=== PATIENT | male | born 1985 | race Caucasian/White ===

== ENCOUNTER 2025-04-09 13:10 | Emergency (ER) | payer OTHER, SELFPAY ==
[2025-04-09 13:26] VITALS: BP 140/68
--- NOTE | 2025-04-09 16:13 | ED.GENMED ---
History of Present Illness
General
Chief Complaint: Extremity Pain (non-traumatic)
Source: patient
Exam Limitations: none
Time Seen by Provider: 04/09/25 15:32
Nursing documentation reviewed up to this point in time: agreed with
History of Present Illness
History of Present Illness:
Patient with history of previous DVT x 3, currently on aspirin 81 mg daily, presents to ED secondary to persistent right foot and ankle pain over the past 6 days. Patient was evaluated by his primary care physician who ordered D-dimer as an
outpatient, which was elevated. Patient was subsequently referred to ED for further evaluation and treatment, including potential ultrasound of the affected leg. Denies loss of sensation/weakness. Denies cp/sob.
Past History
Past History
ED Past Medical History: Other (dvt, thoracic outlet syndrome)
ED Past Surgical History: None
Social History
Tobacco: Non-smoker
Review of Systems
Review of Systems
Allergies reviewed?: Yes
All Other Systems: ROS reviewed and negative except as documented in HPI and ROS
Constitutional: Reports no symptoms
Respiratory: Reports no symptoms; Denies trouble breathing
Cardiac: Reports no symptoms; Denies chest pain
Musculoskeletal: Reports other (Foot and ankle pain with swelling)
Skin: Reports no symptoms
Neurological: Reports no symptoms; Denies weakness or numbness
Phy Exam
Physical Exam
Physical Exam:
Physical Exam
General: no apparent distress, not acutely ill. afebrile
Head: nc/at. eomi
Neck: supple. normal range of motion
Neuro: alert and oriented x 3. no focal neurological deficits
Skin: no rash
Psychiatric: well kept. interactive and cooperative
Extremities: no calf tenderness. minimal erythema noted over top of right foot along with medial malleoli are tenderness with minimal swelling
Course
Orders/Labs/Results
Orders:
Orders
04/09/25 13:12
US Periph Venous LOWER Ext RT Urgent
Comment: hx of rue dvt from thoracic outlet syndrome
Reason For Exam: rle pain; elevated d dimer
Vital Signs
Initial and Last Documented VS:
Initial Vital Signs
Temp Pulse Resp BP Pulse Ox
98.4 F 87 18 140/68 99
04/09/25 13:26 04/09/25 13:26 04/09/25 13:26 04/09/25 13:04/09/25 13:26
Last Documented Vital Signs
Temp Pulse Resp BP Pulse Ox
98.4 F 87 18 140/68 99
04/09/25 13:26 04/09/25 13:26 04/09/25 13:26 04/09/25 13:04/09/25 16:14
MDM/Problems Addressed
MDM/Problems Addressed:
Ultrasound report reviewed and discussed with patient and family. Patient given copy of ultrasound report at discharge, to be discussed with his primary care physician and/or referred mortgage underwriter. Patient already has Eliquis from his previous
incident, which he will start to take today.
*Pulse Oximetry
SaO2: 99
Oxygen Mode of Delivery: Room air
Patient hypoxic: no
*Critical Care Note
Total Time (30-74mins, 75-104mins- exclusive of procedures): Not Applicable
ED Attending Note
-
Portions of this chart may have been created with voice recognition software.� Occasional wrong word or��sound alike� substitutions may have occurred due to the inherent limitations of voice recognition software.
Discharge Plan
Departure
Patient Disposition: Home (Routine Discharge)
Date of Disposition: 04/09/25
Time of Disposition: 16:18
Patient with high blood pressure during this ER visit?: Yes
Discharge Problem:
DVT (deep venous thrombosis)
Instructions: Deep vein thrombosis (DVT) - ED (DC)
Referrals:
Reno Pickard, DO [Active, Hematology / Oncology]
Activity Restrictions/Additional Instructions:
As discussed, please follow-up with your primary care physician and/or referred mortgage underwriter for further evaluation and treatment. In ED, ultrasound revealed an acute DVT. Please start to take Eliquis this evening -10 mg twice daily x 7 days,
followed by 5 mg twice daily.
Interventions
Interventions:
*Risk Screen - Suicide Last Done: 04/09/25 13:26
*General Assessment Last Done: 04/09/25 16:30
*Neglect/Abuse Screening Last Done: 04/09/25 16:30
*Nursing Disposition Last Done: 04/09/25 16:47
ED-Skin Assessment Last Done: 04/09/25 16:30
ED-Peripheral Vascular Assessment Last Done: 04/09/25 16:30
ED-Musculoskeletal Assessment Last Done: 04/09/25 16:30
Discharge Date and Time
Discharge Date/Time: 04/09/25 16:48
Print Language: INDONESIAN
== END 2025-04-09 16:48 | disposition home or self-care (01) ==
LOC: EMR 13:10
PROVIDERS: EMERGENCY PHYSICIAN Emergency Medicine; FAMILY PHYSICIAN Internal Medicine
DX: I82.451 Acute embolism and thrombosis of right peroneal vein (principal); Z86.718 Personal history of other venous thrombosis and embolism; Z79.82 Long term (current) use of aspirin
CPT/HCPCS: 99284; 93971

== ENCOUNTER 2025-06-20 19:43 | Emergency (ER) | payer OTHER, SELFPAY ==
[2025-06-20 20:01] VITALS: BP 146/91
--- NOTE | 2025-06-20 22:25 | ED.MUSCINJ ---
HPI-Injury
General
Chief Complaint: Musculo-Skeletal Complaint
Source: patient and spouse
Exam Limitations: none
Time Seen by Provider: 06/20/25 22:17
Nursing documentation reviewed up to this point in time: agreed with
History of Present Illness-Injury
Is this injury a work related problem?: Yes
Is pt an associate of [facility]?: No
Initial Injury comments:
Note:
CHIEF COMPLAINT(S)
Fall with suspected hand injury.
HISTORY OF PRESENT ILLNESS
The patient is a 40-year-old male who sustained a fall, landing primarily on his hand. The patient reports that when he fell, he felt his fingers and experienced what he describes as a dislocation sensation, which he might have corrected
instinctively by cracking his knuckles. He speculates that his fingers likely sustained impact. The patient denies any head injury or loss of consciousness during the fall. He is able to ambulate without significant pain. 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 Upon evaluation, he identifies pain at the fourth and fifth metacarpals with visible fractures noted on the x-rays reviewed.
PHYSICAL EXAM
General: Alert, no acute distress.
Skin: Warm, dry.
Head: Normocephalic, atraumatic.
Neck: Supple, trachea midline.
Eye, ears, nose, mouth, and throat: Oral mucosa moist.
Cardiovascular: Normal peripheral perfusion, no edema.
Respiratory: Respirations are non-labored.
Gastrointestinal: Abdomen nondistended.
Back: Normal range of motion, normal alignment.
Musculoskeletal: Normal range of motion, normal strength, except for the affected area of the hand where fractures of the fourth and fifth metacarpals are indicated. swellling, tender at right 4th and 5th metacarpals
Neurological: Alert and oriented to person, place, time, and situation, no focal neurological deficit observed.
Psychiatric: Cooperative, appropriate mood & affect.
PLAN
- Discussed potential need for pins to stabilize the fractures.
- Consideration for application of an arm gutter for immobilization.
- Pain management as per patients current comfort level.
- Follow-up care for further evaluation, including potential surgical intervention as discussed.
DIFFERENTIAL DIAGNOSIS
The Differential Diagnosis includes, in no particular order and is not limited to:
1. Metacarpal fracture
2. Finger dislocation
3. Soft tissue injury
4. Tendon sprain
5. Ligament strain
6. Contusion
7. Joint sprain
8. Carpal fracture
9. Peripheral nerve injury
10. Bone bruise
CARE-UPDATE
06/20/25 - 22:44
X-ray results indicate fractures of the right fourth and fifth metacarpals. Discussed case with Dr. Pereira, who concurs with the plan to apply an ulnar gutter splint. Arranged follow-up with hand surgery for further management.
Disposition:
SUMMARY OF ENCOUNTER
The patient, a 40-year-old male, presented to the emergency department after a fall with a suspected hand injury. Upon examination and imaging, fractures were identified on the right fourth and fifth metacarpals. The patient denied any dislocation
or head injury. Neurological assessment showed nerves intact with no indication for reduction. Management included stabilizing the fractures with an ulnar gutter splint due to visible fracture stability confirmed on X-ray.
MANAGEMENT OF THE PATIENTS CARE WAS DISCUSSED WITH
This case was discussed with the orthopedic surgery team. The plan for follow-up with hand surgery was confirmed.
PLAN
The patient will be fitted with an ulnar gutter splint to stabilize the fractures. Follow-up care with hand surgery is arranged for further management. Pain management will be maintained as per patients comfort level.
INDEPENDENT REVIEW OF LABS AND INTERPRETATION OF TESTS
My independent interpretation of the X-rays confirms fractures of the right fourth and fifth metacarpals.
PATIENT EDUCATION AND COUNSELING
The patient was educated on the nature of their fractures, the use of the ulnar gutter splint, and the importance of follow-up with hand surgery for potential further intervention.
FOLLOW-UP INSTRUCTIONS
The patient is advised to follow up with hand surgery for further evaluation and management.
MEDICAL DECISION MAKING
-Complexity of Data Reviewed:
Chronic conditions affecting care: None mentioned. Differential Diagnosis considered include:
1. Metacarpal fracture
2. Finger dislocation
3. Soft tissue injury
4. Tendon sprain
5. Ligament strain
6. Contusion
7. Joint sprain
8. Carpal fracture
9. Peripheral nerve injury
10. Bone bruise
-Data:
Category 1
Tests and documents: My independent interpretation of the X-ray indicates fractures of the fourth and fifth metacarpals.
Category 3
Discussion of management with orthopedic surgery regarding fracture stabilization and follow-up plan for hand surgery.
-Risk:
Consideration of Admission/Observation: Escalation of care including admission/observation was considered due to the complexity and risk of the patients presenting complaint and exam findings. However, the patient is safe for outpatient management
with close follow-up due to stable vital signs and no acute life/organ-threatening processes evident.
DIAGNOSIS
Fracture of right fourth metacarpal, closed (ICD-10: S62.324A)
Fracture of right fifth metacarpal, closed (ICD-10: S62.326A)
Past History
Past History
ED Past Medical History: Other (dvt, thoracic outlet syndrome)
ED Past Surgical History: None
Social History
Tobacco: Non-smoker
Phy Exam
Physical Exam
Physical Exam:
.
Procedures
Splint Check
Splint checked by provider?: Yes
Circulation/Movement/Sensation post splint application: brisk cap refill, full sensation, pulses intact and decreased ROM
*Pulse Oximetry
SaO2: 98
Oxygen Mode of Delivery: Room air
Patient hypoxic: no
*Critical Care Note
Total Time (30-74mins, 75-104mins- exclusive of procedures): Not Applicable
ED Attending Note
-
Portions of this chart may have been created with voice recognition software.� Occasional wrong word or��sound alike� substitutions may have occurred due to the inherent limitations of voice recognition software.
Discharge Plan
Departure
Patient Disposition: Home (Routine Discharge)
Date of Disposition: 06/20/25
Time of Disposition: 22:45
Patient with high blood pressure during this ER visit?: Yes
Condition: Good
Discharge Problem:
Fracture of fifth metacarpal bone of right hand, Fracture of fourth metacarpal bone of right hand
Instructions: BLOOD PRESSURE, Fractures- Metacarpal
Referrals:
Dex Wells MD [Family Provider, Internal Medicine]
Ephraim Hernandez MD [Active, Orthopedics] - Call in 1-3 days for appt
Interventions
Interventions:
*Risk Screen - Suicide Last Done: 06/20/25 20:01
*General Assessment Last Done: 06/20/25 20:01
*ED COVID-19 Vaccine History Last Done: 06/20/25 20:01
*ED Influenza Vaccine History Last Done: 06/20/25 20:01
ED-Musculoskeletal Assessment Last Done: 06/20/25 20:30
Discharge Date and Time
Print Language: BHUTANESE
[2025-06-20 22:50] VITALS: BP 132/81
== END 2025-06-20 23:16 | disposition home or self-care (01) ==
LOC: EMR 19:43
PROVIDERS: EMERGENCY PHYSICIAN Emergency Medicine; FAMILY PHYSICIAN Internal Medicine
DX: S62.304A Unspecified fracture of fourth metacarpal bone, right hand, initial encounter for closed fracture (principal); S62.306A Unspecified fracture of fifth metacarpal bone, right hand, initial encounter for closed fracture; W19.XXXA Unspecified fall, initial encounter; Z86.718 Personal history of other venous thrombosis and embolism
CPT/HCPCS: 29125; 99283

== ENCOUNTER 2025-06-27 06:18 | Day surgery (SDC) | payer OTHER, SELFPAY ==
--- NOTE | 2025-06-26 13:31 | PTCARENOTE ---
Patient concerned re: Suboxone and surgery, states he had a 'bad experience' with surgeries in the past- Dr. Haley notified.
[2025-06-27] VITALS (8 sets, daily range): BP systolic 109–139; BP diastolic 64–87; BMI 25.0
[2025-06-27] MEDS: CELEBREX 200 MG PO (10:26)
[2025-06-27] MEDS: TYLENOL 1000 MG PO (10:27)
[2025-06-27] MEDS: NORMOSOL-R/PLASMALYTE-A 1000 IV (10:30)
== END 2025-06-27 16:26 | disposition home or self-care (01) ==
LOC: SDS 06:18
PROVIDERS: ATTENDING PHYSICIAN Orthopaedic Surgery Hand Surgery
DX: S62.304A Unspecified fracture of fourth metacarpal bone, right hand, initial encounter for closed fracture (principal); S62.306A Unspecified fracture of fifth metacarpal bone, right hand, initial encounter for closed fracture; W19.XXXA Unspecified fall, initial encounter
CPT/HCPCS: 26615 ×2